=== PATIENT | male | born 1945 | race Caucasian/White ===

== ENCOUNTER 2017-07-10 09:31 | Emergency (ER) | payer MEDICARE ==
[~2017-07-10] VITALS: Ht 177.8 cm; Wt 86.2 kg
[2017-07-10 09:45] LABS: Calcium, Ionized (POC) 1.08 mmol/L (1.10-1.46); Chloride (POC) 99 mmol/L (98-108); Creatinine (POC) 6.4 mg/dL (0.8-1.3); Glucose (ISTAT POC) 90 mg/dL (70-99); Hemoglobin (POC) 10.5 g/dL (13.5-17.5); Sodium (POC) 140 mmol/L (135-148); Total CO2 (POC) 30 mmol/L (21-32)
[2017-07-10] MEDS ORDERED: Omeprazole20 M1 (09:51)
[2017-07-10] MEDS ORDERED: ROPI1 (09:51)
[2017-07-10] MEDS ORDERED: TRAM50 (09:51)
[2017-07-10] MEDS ORDERED: ATOR20 (09:51)
[2017-07-10] MEDS ORDERED: PARO30 (09:51)
[2017-07-10] MEDS ORDERED: Abilify2 MG (09:51)
[2017-07-10] MEDS ORDERED: TAMS.4ER (09:52)
[2017-07-10] MEDS ORDERED: HYDURE500 (09:52)
[2017-07-10] MEDS ORDERED: CARV25 (09:52)
[2017-07-10] MEDS ORDERED: SEVEC800 (09:52)
[2017-07-10 10:02] LABS: Hematocrit 33.9 % (37.0-53.0); Hemoglobin 10.6 g/dL (13.5-17.5); Mean Corpuscular HGB Conc 31.3 g/dL (31.5-36.5); Mean Corpuscular Volume 96 fL (80-100); NRBC ABSOLUTE 0.04 K/mm3 (0.00-0.02); NRBC Auto 0.3 /100 WBC (0.0-0.2); Platelet Count 561 K/mm3 (150-400); RDW Coefficient Variation 17.6 % (11.7-14.2); RDW Standard Deviation 61.9 fL (35.1-46.3); Red Blood Cell Count 3.53 M/mm3 (4.30-5.90); White Blood Cell Count 13.73 K/mm3 (4.00-11.30)
[2017-07-10 10:28] LABS: BAND PERCENT MAN 16 % (0-8); BASOPHILS ABSOLUTE MAN 0.82 K/mm3 (0.00-0.23); BASOPHILS PERCENT MAN 6 % (0-2); BLASTS PERCENT MAN 1 % (0-0); EOSINOPHILS ABSOLUTE MAN 0.13 K/mm3 (0.00-0.68); EOSINOPHILS PERCENT MAN 1 % (0-6); LYMPHOCYTES ABSOLUTE MAN 1.37 K/mm3 (0.84-5.20); LYMPHOCYTES PERCENT MAN 10 % (21-46); METAMYELOCYTE ABSOLUTE MAN 0.41 K/mm3 (0.00-0.00); METAMYELOCYTE PERCENT MAN 3 % (0-0); MONOCYTES ABSOLUTE MAN 1.09 K/mm3 (0.16-1.47); MONOCYTES PERCENT MAN 8 % (4-13); MYELOCYTE ABSOLUTE MAN 0.27 K/mm3 (0.00-0.00); MYELOCYTE PERCENT MAN 2 % (0-0); NEUTROPHILS ABSOLUTE MAN 9.47 K/mm3 (1.96-9.15); SEG NEUTROPHILS PERCENT MAN 53 % (41-73); TOTAL CELLS COUNTED 100
[2017-07-10] MEDS ORDERED: Loperamide2 MG PO (11:00)
== END 2017-07-10 12:23 | disposition home or self-care (01) ==
LOC: ER 09:31
PROVIDERS: Emergency Medicine
DX: R19.7 Diarrhea, unspecified (principal); R16.1 Splenomegaly, not elsewhere classified; Z79.899 Other long term (current) drug therapy; Z79.891 Long term (current) use of opiate analgesic
CPT/HCPCS: 74176; 80047; 85014; 85025; 93005; 93010; 99284